=== PATIENT | male | born 1945 | race Caucasian/White ===

== ENCOUNTER → 2024-09-06 08:50 | Outpatient (REF) | payer MEDICARE, SELFPAY ==
[2024-09-06 10:41] LABS: Hematocrit 32.3 % (39.0-52.0); Hemoglobin 10.5 g/dL (13.0-18.0); Mean Corp Hgb Conc. 32.5 g/dL (33.0-37.0); Mean Corpuscular Hgb 30.7 pg (27.0-31.0); Mean Corpuscular Volume 94.4 fL (80.0-94.0); Mean Platelet Volume 11.1 fL (7.4-10.4); Platelet Count 161 10^3/uL (130-400); Red Blood Cell Count 3.42 10^6/uL (4.70-6.10); Red Cell Dist. Width 13.9 % (11.5-14.5)
[2024-09-06 10:43] LABS: Urine Albumin Trace (Neg - Trace); Urine Bilirubin 2+ (Negative); Urine Character Slightly Cloudy (Clear); Urine Glucose Negative (Negative); Urine Ketone Negative (Negative); Urine Leukocyte 1+ (Negative); Urine Nitrite Positive (Negative); Urine Occult Blood 2+ (Negative); Urine Specific Gravity 1.015 (<1.030); Urine Urobilinogen 3+ (Neg - 1+)
[2024-09-06 10:44] LABS: Urine Color Orange
[2024-09-06 10:57] LABS: Urine Bacteria Few (Negative); Urine Squamous Cell 0-2 /LPF (Few)
[2024-09-06 10:58] LABS: Urine White Cell 26-30 /HPF (0-5)
[2024-09-06 11:00] LABS: Blood Urea Nitrogen 45 mg/dl (9-20); Calcium 9.3 mg/dl (8.4-10.2); Carbon Dioxide 23 mmol/L (22-30); Chloride 107 mmol/L (98-107); Glucose 209 mg/dl (70-99); Potassium 4.7 mmol/L (3.5-5.1); Sodium 141 mmol/L (135-145); eGFR 20.36
== END ==
LOC: SDSPAT 08:50
PROVIDERS: ATTENDING PHYSICIAN Specialist; FAMILY PHYSICIAN Family Medicine; OTHER PHYSICIAN Internal Medicine Cardiovascular Disease
DX: Z01.818 Encounter for other preprocedural examination (principal)
CPT/HCPCS: 36415; 80048; 81003; 81015; 85027; 93005

== ENCOUNTER 2024-09-13 11:59 | Inpatient (IN) | payer MEDICARE, SELFPAY ==
[2024-09-06 09:38] VITALS: BMI 33.7
--- NOTE | 2024-09-06 12:27 | PTCARENOTE ---
Abn Glucose 206, Keerthi at Dr. Rodriguez's office made aware.
--- NOTE | 2024-09-10 09:28 | PTCARENOTE ---
Patients 09/06 BUN- 45;Creat- 3.0; GFR 20.36- Keerthi @ Dr. Martini office notified
[2024-09-13] VITALS (17 sets, daily range): BP systolic 104–139; BP diastolic 56–73; BMI 33.7
[2024-09-13 09:05] LABS: Glucose - Point of Care 151 mg/dl (70-99)
[2024-09-13 09:38] LABS: Urine Albumin Trace (Neg - Trace); Urine Bilirubin Negative (Negative); Urine Character Slightly Cloudy (Clear); Urine Color Yellow; Urine Glucose Negative (Negative); Urine Ketone Negative (Negative); Urine Leukocyte 2+ (Negative); Urine Nitrite Negative (Negative); Urine Occult Blood 1+ (Negative); Urine Specific Gravity 1.015 (<1.030); Urine Urobilinogen Negative (Neg - 1+)
[2024-09-13 11:41] LABS: Glucose - Point of Care 155 mg/dl (70-99)
[2024-09-13 11:47] LABS: Urine Amorphous Seen; Urine White Cell >100 /HPF (0-5)
[2024-09-13] MEDS: DETROL LA 4 MG PO (12:08)
[2024-09-13] MEDS: DILAUDID 0.25 MG IV ×2 (12:10→12:47)
--- NOTE | 2024-09-13 12:45 | W.PN.URO.CBU ---
Today's Communication / Plan
-
post op roundfs
Assessment / Plan
-
s/p turp and removal bladder stones fr cbi iv abs check creatinine
Diagnosis
-
Date of Service: September 13, 2024
-
Patient Diagnosis:bph bladder srtomnes urinary retntion crteatinine 3.0
Post Op Day:
Subjective
-
feeling well post op[
Objective
-
Vital Signs
Temp Pulse Resp BP Pulse Ox
98.5 F 66 14 106/56 96
09/13/24 11:32 09/13/24 12:30 09/13/24 12:30 09/13/24 12:30 09/13/24 12:30
Review of Systems
-
: Difficulty Voiding and Dark Urine
Physical Exam
-
General - well developed, well nourished, no acute distress
Chest - clear bilaterally
Abdomen - soft, non-tender, positive bowel sounds, no CVAT, no incisional pain or distention
Genitalia - normal
Rectal - normal
Skin - warm & dry with no rash
Neuro - AOx3, no motor deficits
Extremities - no clubbing, no cyanosis, no edema
Incision - clean, dry
Dressing - clean, dry, intact
Counseling
-
try ansd wean down cbi before morning
Care Review
Data Reviewed
Discussed with: Nursing and Family
--- NOTE | 2024-09-13 14:00 | PTCARENOTE ---
Pt received from the PACU via bed. Transport was w/o incident. Pt AAOx3, HR reg/irreg, lungs clear, abd soft. CBI infusing w/o difficulty. Urine is pink tinged, no clots noted at this time. VSS, Pt is afebrile. Pt instructed on plan of care, Pt
verbalized understanding of instructions.
[2024-09-13] MEDS: LR 1000 IV (14:52)
[2024-09-13] MEDS: Pyridium 100 MG PO ×2 (17:21→22:16)
[2024-09-13] MEDS: ZESTRIL 40 MG PO (17:21)
[2024-09-13] MEDS: ANCEF 5 IV (17:22)
[2024-09-13] MEDS: TOPROL XL 50 MG PO (20:06)
[2024-09-14] MEDS: ANCEF 5 IV ×3 (01:36→18:34)
[2024-09-14 03:12] VITALS: BP 115/68
[2024-09-14] MEDS: LR 1000 IV (04:26)
[2024-09-14 05:36] LABS: Hematocrit 28.9 % (39.0-52.0); Hemoglobin 9.3 g/dL (13.0-18.0)
[2024-09-14 06:07] LABS: ALT (SGPT) 14 U/L (0-50); AST (SGOT) 19 U/L (17-59); Albumin 3.4 g/dl (3.5-5.0); Alkaline Phosphatase 55 U/L (38-126); Blood Urea Nitrogen 42 mg/dl (9-20); Calcium 8.7 mg/dl (8.4-10.2); Carbon Dioxide 20 mmol/L (22-30); Chloride 108 mmol/L (98-107); Estimated Creatinine Clearance 26 ml/min; Glucose 160 mg/dl (70-99); Potassium 4.8 mmol/L (3.5-5.1); Sodium 141 mmol/L (135-145); Total Bilirubin 0.3 mg/dl (0.2-1.3); Total Protein 5.8 g/dl (6.3-8.2); eGFR 25.34
[2024-09-14 07:05] VITALS: BP 141/67
[2024-09-14] MEDS: Pyridium 100 MG PO ×3 (09:15→21:22)
[2024-09-14] MEDS: CRESTOR 20 MG PO (09:16)
[2024-09-14] MEDS: TOPROL XL 50 MG PO ×2 (09:16→19:34)
[2024-09-14] MEDS: FLOMAX 0.4 MG PO (09:16)
[2024-09-14 11:00] VITALS: BP 145/73
--- NOTE | 2024-09-14 13:20 | W.PN.URO.CBU ---
Today's Communication / Plan
-
hl iv encourage fluids encourage oob rgant out 0600 if no majoir clots tonight
Assessment / Plan
-
s/p turp and removal bladder sto kostas creat down hgb stable plan hold cbi noiv check labs and voiding trial in am if stable
Diagnosis
-
Date of Service: September 14, 2024
-
Patient Diagnosis:
Post Op Day:
Patient Diagnosis:bph bladder srtomnes urinary retntion crteatinine 3.0
Post Op Day:
Subjective
-
mild hematuria
Objective
-
Vital Signs
Temp Pulse Resp BP Pulse Ox
98.0 F 66 17 145/73 99
09/14/24 11:00 09/14/24 11:00 09/14/24 11:00 09/14/24 11:00 09/14/24 11:00
Intake and Output
09/13/24 09/14/24 09/15/24
06:59 06:59 06:59
Intake Total 1380 / 1380 120 / 120
Output Total 2099
Balance -720 / -720 120 / 120
Intake:
Oral fluids 480 / 480 120 / 120
IV fluids (Total) 900 / 900
Output:
True Urine Output from CBI 2099
Laboratory Results
09/14/24 04:14
09/14/24 04:14
Review of Systems
-
: Dark Urine
Physical Exam
-
General - well developed, well nourished, no acute distress
Chest - clear bilaterally
Abdomen - soft, non-tender, positive bowel sounds, no CVAT, no incisional pain or distention
Genitalia - normal
Rectal - normal
Skin - warm & dry with no rash
Neuro - AOx3, no motor deficits
Extremities - no clubbing, no cyanosis, no edema
Incision - clean, dry
Dressing - clean, dry, intact
Care Review
Data Reviewed
Discussed with: Nursing and Family
[2024-09-14] MEDS: LR IV (13:40)
--- NOTE | 2024-09-14 13:41 | PTCARENOTE ---
Pt w/3 way Alvarez connected to CBI tubing. urine output is orange in color. IVF capped and CBI tubing removed and port plugged as ordered by Dr Rodriguez. pt endorses no c/o at this time. care ongoing.
[2024-09-14 15:05] VITALS: BP 127/59
[2024-09-14] MEDS: ZESTRIL 40 MG PO (18:34)
[2024-09-14] MEDS: FLUSH (NSS) 2 FLUSH IV (18:35)
[2024-09-14 23:19] VITALS: BP 120/62
[2024-09-15] MEDS: ANCEF 5 IV ×2 (02:23→10:56)
[2024-09-15 06:03] LABS: Hematocrit 29.2 % (39.0-52.0); Hemoglobin 9.6 g/dL (13.0-18.0)
[2024-09-15 07:52] VITALS: BP 136/72
[2024-09-15] MEDS: TOPROL XL 50 MG PO (07:57)
[2024-09-15] MEDS: Pyridium 100 MG PO (07:57)
[2024-09-15] MEDS: FLOMAX 0.4 MG PO (07:57)
[2024-09-15] MEDS: CRESTOR 20 MG PO (07:57)
--- NOTE | 2024-09-15 11:09 | CM ---
Patient seen at bedside. Patient stated that he lives alone in a one story home. Patient has no steps. Patient has no had no VN or DME at home prior to admission. Patient PCP is Dr. Isrrael Red and he uses the [facility] in [place]. Patient plan
is to drive home independently. Patient declined any VN supports at this time. CM will continue to follow for discharge planning needs.
Plan; home with no needs; watch for VN if d/c with grant
[2024-09-15 12:24] VITALS: BP 131/66
== END 2024-09-15 12:34 | disposition home or self-care (01) | DRG 713 ==
LOC: 2 SOUTH 11:59
PROVIDERS: ADMITTING PHYSICIAN Specialist
PROC: 0TCB8ZZ Extirpation of Matter from Bladder, Via Natural or Artificial Opening Endoscopic (ICD-10-PCS; 2024-09-13)
PROC: 0VT08ZZ Resection of Prostate, Via Natural or Artificial Opening Endoscopic (ICD-10-PCS; 2024-09-13)
DX: N40.0 Benign prostatic hyperplasia without lower urinary tract symptoms (principal); N17.9 Acute kidney failure, unspecified; N39.0 Urinary tract infection, site not specified; N21.0 Calculus in bladder; I48.91 Unspecified atrial fibrillation; I10 Essential (primary) hypertension; E78.5 Hyperlipidemia, unspecified
CPT/HCPCS: 88305; 80053; 81003; 81015; 82365; 82962; 85014; 85018; 87086